=== PATIENT | female | born 1980 | race Caucasian/White ===

== ENCOUNTER → 2017-05-27 13:32 | Outpatient (CLI) | payer MEDICAID, SELFPAY ==
[2017-05-28 11:35] LABS: Chlamydia Trachomatis by PCR Negative (Negative); Neisserai gonorrhoeae by PCR Negative (Negative); Probe Check PASS; Sample Adequacy Control PASS; Specimen Processing Control PASS
[2017-05-29 03:07] LABS: HCV Quant. RNA PCR HCV Not Detected IU/mL (.)
[2017-05-29 03:15] LABS: Rapid Plasmin Reagin (RPR) NONREACTIVE (NONREACTIVE)
[2017-05-29 09:05] LABS: HEPATITIS B SURFACE AG Negative (Negative); HSV 1 IgG < 0.91 index (0.00-0.90); HSV 2 IgG < 0.91 index (0.00-0.90)
[2017-06-09 09:31] LABS: HPV APTIMA, High Risk Negative; HPV Reflexed? YES, CHARGE PATIENT
== END ==
PROVIDERS: Nurse Practitioner Women's Health; Family Provider Internal Medicine; PCP Internal Medicine; Visit Provider Obstetrics & Gynecology
DX: Z12.4 Encounter for screening for malignant neoplasm of cervix (principal); Z11.3 Encounter for screening for infections with a predominantly sexual mode of transmission
CPT/HCPCS: 36415; 86592; 86695; 86696; 87340; 87491; 87522; 87591; 87624; 88175; G0145

== ENCOUNTER 2017-11-18 11:54 | Emergency (ER) | payer MEDICAID, SELFPAY ==
[2017-11-18 11:55] VITALS: BP 142/78; PULSE 100; RESP 22; TEMP 36.6; O2SAT 98; BMI 27.6
--- NOTE | 2017-11-18 12:11 | RAD_ITS ---
STUDY: X-RAY - LEFT FOOT CLINICAL: Pain in great toe after injury. TECHNIQUE: 3 view(s) of the foot. COMPARISON: Radiograph report 12/20/2010. FINDINGS: Normal talus, calcaneus, and tarsal bones. Normal visualized subtalar, talonavicular, calcaneocuboid, tarsal and tarsometatarsal articulations. Normal metatarsi. Normal metatarsophalangeal joint of the great toe. Normal tibial and fibular sesamoid bones. Normal interphalangeal joint of the great toe. There is a nondisplaced fracture of the ungual tuft of the great toe, best evaluated on the oblique view. Normal second through fifth metatarsophalangeal joints. Normal interphalangeal joints and phalanges of the lesser toes. There is soft tissue swelling of the great toe. RAD/Foot min 3 Views IMPRESSION: Nondisplaced fracture of the ungual tuft of the great toe. Electronically Signed: Emory Patel MD at 13:05 EDT Tel , Service support ,
[2017-11-18] MEDS: oxyCODONE 5 MG Tablet PO (13:41)
--- NOTE | 2017-11-18 13:44 | ED.VISSUMM ---
- ER Visit Summary Date of Service: 11/18/17 Chief Complaint: [Injury to left great toe] History of Present Illness: The patient is a 37 F [presents the emergency department with complaint of an injury to her left foot. Patient states that she must have bumped a log that was laying against the wall and it fell and struck her on the left foot. Patient complaining of pain mostly to the toes. Patient having pain with ambulation. Patient normally has a chronic left foot drop due to a back surgery that she has had.] Physical Examination: [Left foot-patient does have some mild soft tissue swelling over the great toe with small 10% maximal subungual hematoma. Patient has tenderness palpation over the distal phalanx. She is neurovascular intact.] Test Results: [X-rays of the left foot obtained showed a fracture of the distal phalanx of the great toe.] Emergency Department Course and Treatment: [Patient had a great toe and second toe samuel taped. She was given a postop shoe and crutches. Patient was given 1 OxyIR.] Treatment Plan: [Patient has pain medication at home and that she chronically gets Percocet from pain management. Patient did ask for his something for nausea and I will write her a prescription for Zofran.] Disposition: [Discharged home in stable condition] Impression: [Fracture left great toe distal phalanx] This note was generated with [employer] dictation software. It may contain incorrect words, spelling, and punctuation that were not noted in review of the chart prior to signing ED Disposition - Plan for ED Patient: Chief Complaint: Lower Extremity Injury Referrals: Crystal Batista MD [Primary Care Provider] -
--- NOTE | 2017-11-18 13:46 | ED.DEP ---
ED Disposition - Plan for ED Patient: Chief Complaint: Lower Extremity Injury Instructions: ED Fx Toe Closed Prescriptions: Ondansetron [Zofran Odt] 4 mg PO Q8H PRN PRN #10 tab PRN Reason: Nausea Referrals: Crystal Batista MD [Primary Care Provider] - 5-7 Days
[2017-11-18] MEDS: Ondansetron ODT 4 MG Tablet PO (14:00)
[2017-11-18 14:01] VITALS: BP 139/86; PULSE 98; RESP 14; O2SAT 98
== END 2017-11-18 14:06 | disposition home or self-care (01) ==
LOC: ED 13:50
PROVIDERS: Emergency Provider Emergency Medicine; Family Provider Internal Medicine; PCP Internal Medicine
DX: S92.425A Nondisplaced fracture of distal phalanx of left great toe, initial encounter for closed fracture (principal); W22.8XXA Striking against or struck by other objects, initial encounter; Y93.9 Activity, unspecified; Y92.9 Unspecified place or not applicable; Z72.0 Tobacco use
CPT/HCPCS: 73630; 99284

== ENCOUNTER 2020-08-04 05:23 | Emergency (ER) | payer MEDICARE, MEDICAID, SELFPAY ==
[2019-05-16 10:37] VITALS: BMI 31.8
[2020-08-04 05:24] VITALS: BP 126/81; PULSE 98; RESP 16; TEMP 36; O2SAT 99; BMI 30.3
--- NOTE | 2020-08-04 05:37 | EX.ED.DYSGE1 ---
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 She states that she has been addicted to oxycodone. She is now gone 5 days on her own without any. She states that her she expected her symptoms to improve. She notes continued diarrhea restlessness headaches nausea and overall feeling poorly. She notes poor sleep. Patient states that she does not believe that she needs Suboxone. She is unsure she wants to enter the detox program. She does not believe she needs to go to [facility] or speak with a counselor. [facility] Medical History Anxiety and depression Substance abuse Home Medications gabapentin 300 mg PO BIDCM 11/18/17 [History Last Taken 11/18/17] clonidine HCl 0.1 mg PO BID PRN #10 tab 08/04/20 [Rx Last Taken Unknown] dicyclomine 20 mg PO TID PRN #20 tab 08/04/20 [Rx Last Taken Unknown] norgestimate-ethinyl estradiol [[place]-Linyah] 1 tab PO DAILY 08/04/20 [History Last Taken Unknown] ondansetron 4 mg PO Q6H PRN PRN #20 tab 08/04/20 [Rx Last Taken Unknown] topiramate [Topamax] 150 mg PO QHS 08/04/20 [History Last Taken Unknown] Allergy/AdvReac Type Severity Reaction Status Date / Time Penicillins Allergy Intermediate Rash Verified 12/29/18 11:43 acetaminophen [From Vicodin] AdvReac Intermediate Nausea Verified 12/29/18 11:43 hydrocodone bitartrate AdvReac Intermediate Nausea Verified 12/29/18 11:43 [From Vicodin] Family History Mother Hypertension Uncle Hypertension Sister Hypertension Grandfather Hypertension Prostate cancer Unknown Myocardial infarction Surgical History bilateral uterine surgery delivery delivered dissection of L-4 and L-5 H/O dilation and curettage History of cholecystectomy History of foot surgery History of lumbar fusion History of tonsillectomy Hx of appendectomy S/P tubal ligation tendon transfer Social History Smoking Status: Current every day smoker tobacco type: cigarettes alcohol intake: current details: social substance use type: does not use caffeine: Yes what type of physical activity do you participate in: walking frequency: daily seatbelt use: always do you feel safe at home: Yes additional social history: engaged ROS ROS ED Constitutional Constitutional ED: Reports chills and sweats; Denies weight loss Eyes Eyes: Denies change in vision or diplopia ENT ENT ED: Reports rhinorrhea; Denies ear pain or sore throat Cardiovascular Cardiovascular: Reports palpitations; Denies chest pain, orthopnea or racing heartbeat Respiratory/Chest Respiratory/Chest: Denies cough, dyspnea or orthopnea Gastrointestinal Gastrointestinal: Reports abdominal pain, diarrhea and nausea; Denies vomiting Genitourinary Genitourinary ED: Denies dysuria, hematuria or urinary frequency Musculoskeletal Musculoskeletal: Reports myalgias; Denies arthralgias Integumentary Denies abscess or rash Neurologic Neurologic: Reports other Details: Restless legs insomnia ; Denies headache(s) or weakness Psychiatric Psychiatric: Reports anxiety; Denies depression, suicidal ideation or suicidal thoughts Endocrine Endocrinology: Denies polydipsia, polyphagia or polyuria Allergic/Immunologic Allergic/Immunologic ED: Denies mouth swelling, tongue swelling or urticaria EXAM Physical Exam Const Vital Signs: 08/04/20 05:24 Temperature 96.8 F L Temperature Source Temporal Pulse Rate 98 Respiratory Rate 16 Blood Pressure 126/81 H Blood Pressure Mean 96 Pulse Ox 99 Oxygen Delivery Method Room Air Positive well nourished and well developed Constitutional Narrative: Patient is restless in the bed. General Appearance ED: well developed HEENT Reports normocephalic, head/scalp atraumatic and moist mucous membranes Eyes PERRL and EOMs intact bilaterally Neck no lymphadenopathy, supple and no JVD Resp normal respiratory effort and clear to auscultation bilaterally Cardio regular rate and no murmurs Rate: tachycardic GI normal to inspection, nondistended, normoactive bowel sounds and non-tender Palpation: soft Back/Spine no CVA tenderness and normal ROM Extremity normal to inspection General Extremety ED: Negative for edema General Extremity: Negative for edema Neuro oriented x3 and CN's II-XII intact bilaterally Sensorium / Orientation: alert Motor Exam: strength 5/5 throughout Psych mental status grossly normal Psych Narrative: Patient denies suicidal homicidal ideation. Mood & Affect: tearful; Negative for depressed Skin no rashes or lesions noted and no wounds MDM MDM MDM Narrative Medical decision making narrative: Patient would like to think about whether or not she wants to stay for inpatient detox. I will give her a liter of fluids Zofran Bentyl and a clonidine while we await her answer. Patient is decided she would rather go home and see if her symptoms resolve in the next couple days. If they do not she states she may return. I will write her prescriptions for Zofran Bentyl and a few clonidine. I will refer her to 180. I encouraged her that she would most likely have a better success rate at staying off the oxycodone by coming into the hospital and following up. Discharge Plan Triage Chief Complaint: Substance Abuse ED Provider: Evelio Lowery Dx/Rx/DC Orders Clinical Impression: Opiate addiction, Opiate withdrawal Instructions: ED Opioid Withdrawal Prescriptions: New ondansetron [ondansetron] 4 MG tablet 4 mg PO Q6H PRN PRN (Reason: Nausea) Qty: 20 RF: 0 dicyclomine 20 mg tablet 20 mg PO TID PRN (Reason: abdominal pain) Qty: 20 RF: 0 clonidine HCl 0.1 mg tablet 0.1 mg PO BID PRN (Reason: Restlessness) Qty: 10 RF: 0 No Action gabapentin 100 MG capsule 300 mg PO BIDCM RF: 0 norgestimate-ethinyl estradiol [[place]ray-Linyah] 0.25-35 mg-mcg Tablet 1 tab PO DAILY RF: 0 topiramate [Topamax] 100 mg Tablet 150 mg PO QHS RF: 0 Primary Care Provider: Crystal Batista Referrals: Crystal Batista MD [Primary Care Provider] - [facility] [STAFF PHYSICIAN] - As soon as possible Disposition Disposition: Home, self care
[2020-08-04] MEDS: Dicyclomine 10 MG Capsule 20 MG PO (05:43)
[2020-08-04] MEDS: cloNIDine HCl 0.1 MG Tablet PO (05:43)
[2020-08-04] MEDS: Ondansetron 4 MG/2 ML Vial IV (05:43)
[2020-08-04] MEDS: 0.9% Normal Saline 1,000 ML 1000 ML IV (05:44)
[2020-08-04 07:38] VITALS: BP 132/61; PULSE 67; RESP 16; O2SAT 99
== END 2020-08-04 07:40 | disposition home or self-care (01) ==
PROVIDERS: Emergency Provider Emergency Medicine; PCP Internal Medicine
DX: F11.23 Opioid dependence with withdrawal (principal); F17.210 Nicotine dependence, cigarettes, uncomplicated; Z79.899 Other long term (current) drug therapy
CPT/HCPCS: 96361; 96374; 99283; J7030; A4216; J2405

== ENCOUNTER 2020-08-10 08:22 | Inpatient (IN) | payer MEDICARE, MEDICAID, SELFPAY ==
[2020-08-10] VITALS (8 sets, daily range): BP systolic 110–180; BP diastolic 60–96; PULSE 66–97; RESP 16–24; TEMP 36.6–37.2; O2SAT 95–99; BMI 31.3; BMI 29.8
--- NOTE | 2020-08-10 08:40 | EDS_ITS ---
HPI History of Present Illness Chief Complaint: Substance Abuse Detail of Chief Complaint: Requesting detox from opiates Informant: patient Associated Symptoms Associated Symptoms: Positive for diarrhea* Narrative Narrative: Patient presents to the emergency department with history of opiate abuse. Patient states that she had many surgeries years ago on her back and then had a tendon transfer in her left leg which required her to be on narcotic pain medication. She has been abusing oxycodone up to 10 tablets daily. Her last dose was on July 30. She was seen in the emergency department 6 days ago and given clonidine as well as Bentyl and Zofran to try to manage the symptoms at home. Patient states that she had been doing okay for several days but noted that she was getting groggy at time so she stopped taking some of her medication. Patient then started having more symptoms of withdrawal and since yesterday has been very uncomfortable with body aches and diarrhea and feeling anxious. She denies any suicidal or homicidal ideation. Prior similar symptoms: No PFSH PFSH Medical History Anxiety and depression Substance abuse Home Medications gabapentin 300 mg PO BIDCM 11/18/17 [History Last Taken 11/18/17] clonidine HCl 0.1 mg PO BID PRN #10 tab 08/04/20 [Rx Last Taken Unknown] dicyclomine 20 mg PO TID PRN #20 tab 08/04/20 [Rx Last Taken Unknown] norgestimate-ethinyl estradiol [[place]-Linyah] 1 tab PO DAILY 08/04/20 [History Last Taken Unknown] ondansetron 4 mg PO Q6H PRN PRN #20 tab 08/04/20 [Rx Last Taken Unknown] topiramate [Topamax] 150 mg PO QHS 08/04/20 [History Last Taken Unknown] Allergy/AdvReac Type Severity Reaction Status Date / Time Penicillins Allergy Intermediate Rash Verified 08/10/20 08:26 acetaminophen [From Vicodin] AdvReac Intermediate Nausea Verified 08/10/20 08:26 hydrocodone bitartrate AdvReac Intermediate Nausea Verified 08/10/20 08:26 [From Vicodin] Family History Mother Hypertension Uncle Hypertension Sister Hypertension Grandfather Hypertension Prostate cancer Unknown Myocardial infarction Surgical History bilateral uterine surgery delivery delivered dissection of L-4 and L-5 H/O dilation and curettage History of cholecystectomy History of foot surgery History of lumbar fusion History of tonsillectomy Hx of appendectomy S/P tubal ligation tendon transfer Social History Smoking Status: Former smoker alcohol intake: current details: social substance use type: does not use caffeine: Yes what type of physical activity do you participate in: walking frequency: daily seatbelt use: always do you feel safe at home: Yes additional social history: engaged ROS ROS ED Constitutional Constitutional ED: Reports systems reviewed and no addt'l complaints, except as documented; Denies body ache(s), change in weight or chills Eyes Eyes: Denies acute decrease in peripheral vision, change in vision, double vision or loss of vision ENT ENT ED: Reports none; Denies ear pain, lip swelling, loss taste/smell, neck pain, otalgia or sore throat Cardiovascular Cardiovascular: Reports none; Denies abdominal pain, chest pain with activity, leg edema, lightheadedness, palpitations, rapid heart rate or syncope Respiratory/Chest Respiratory/Chest: Reports none; Denies change in mental status, dry cough, dyspnea, hemoptysis, shortness of breath at rest or shortness of breath with exertion Gastrointestinal Gastrointestinal: Reports none, diarrhea and nausea; Denies abdominal pain, change in stool character, hematemesis, hematochezia, melena, rectal bleeding or vomiting Genitourinary Genitourinary ED: Reports none; Denies abdominal discomfort, anuria, dysuria, genital pain or polyuria Musculoskeletal Musculoskeletal: Reports none and myalgias; Denies arthralgias, back pain, difficulty walking, extremity pain or muscle weakness Integumentary Reports none; Denies abscess or rash Neurologic Neurologic: Reports none; Denies abnormal gait, confusion, focal weakness, frequent falls, headache(s), loss of vision, numbness, paresthesias, radicular pain, vertigo or weakness Psychiatric Psychiatric: Reports systems reviewed and no addt'l complaints, except as documented and none; Denies behavioral changes, confusion, difficulty concentrating, hallucinations, suicidal ideation, suicidal thoughts, tactile hallucinations or visual hallucinations Endocrine Endocrinology: Denies none, cold intolerance, excessive sweating, fatigue or heat intolerance Hematologic/Lymphatic Hematologic/Lymphatic: Reports none; Denies anemia, easy bleeding or easy bruising Allergic/Immunologic Allergic/Immunologic ED: Denies as per HPI, none, lip swelling, mouth swelling, throat swelling, tongue swelling or hives EXAM Physical Exam Const Vital Signs: 08/10/20 08:23 08/10/20 08:37 08/10/20 10:23 Temperature 97.9 F Temperature Source Temporal Pulse Rate 97 85 Respiratory Rate 24 H 18 20 H Blood Pressure 180/96 H 122/84 H Blood Pressure Mean 124 96 Pulse Ox 98 97 Oxygen Delivery Method Room Air Room Air 08/10/20 10:52 Temperature Temperature Source Pulse Rate 71 Respiratory Rate 16 Blood Pressure 127/80 H Blood Pressure Mean 95 Pulse Ox 99 Oxygen Delivery Method Room Air Positive well nourished and well developed General Appearance ED: well developed and NAD HEENT Reports TM's clear and moist mucous membranes normocephalic and atraumatic; Negative for trauma or tenderness Tympanic Membrane ED: Yes TM's clear Eyes PERRL and EOMs intact bilaterally General Eye ED: Negative for pale conjunctiva or scleral icterus Neck no lymphadenopathy, supple and no JVD General: Negative for tenderness Chest Wall inspection of chest normal and palpation of chest normal Chest: Negative for tenderness Resp normal respiratory effort and clear to auscultation bilaterally Effort and Inspection: Negative for respiratory distress or pain with movement Auscultation: Negative for rhonchi, wheezes or diminished lung sounds Cardio regular rate, regular rhythm, S1 normal heart sound, S2 normal heart sound and no murmurs Peripheral Pulses: pulses 2+ throughout GI normal to inspection, nondistended, normoactive bowel sounds, soft to palpation, non-tender, non-distended and no masses Back/Spine no CVA tenderness and no thoracic nor lumbar tenderness Extremity normal to inspection General Extremety ED: Negative for edema General Extremity: Negative for edema Neuro oriented x3, CN's II-XII intact bilaterally, no sensory deficits noted and gait normal Sensorium / Orientation: awake, alert, oriented to person, oriented to place and oriented to time Motor Exam: strength 5/5 throughout and strength abnormal Psych mental status grossly normal Skin no rashes or lesions noted and no wounds MDM MDM MDM Narrative Medical decision making narrative: Patient given some Ativan for anxiety. Patient given Zofran for symptom relief. Case discussed with hospitalist will evaluate patient for admission. Lab Data Attestation: I reviewed the patient's lab results. Labs: Laboratory Results - last 24 hr 08/10/20 08/10/20 08/10/20 09:00 09:00 09:00 Sodium 140 Potassium 3.9 Chloride 113 H Carbon Dioxide 21.0 Anion Gap 6 BUN 11 Creatinine 1.08 H Estim Creat Clear Calc 68.68 Est GFR (MDRD) Af Amer 73 Est GFR (MDRD) Non-Af 60 BUN/Creatinine Ratio 10.2 Glucose 95 Calcium 8.8 Total Bilirubin 0.20 AST 8 L ALT 54 Alkaline Phosphatase 51 Total Protein 7.5 Albumin 3.9 Globulin 3.6 Albumin/Globulin Ratio 1.1 Serum , Qual NEGATIVE Urine Opiates Screen Urine Methadone Screen Ur Barbiturates Screen Ur Phencyclidine Scrn Ur Amphetamines Screen U Methamphetamin-MDMA U Benzodiazepines Scrn Urine Cocaine Screen U Cannabinoids Screen Ur Drug Screen Comment Ethyl Alcohol < 3.0 08/10/20 09:00 Sodium Potassium Chloride Carbon Dioxide Anion Gap BUN Creatinine Estim Creat Clear Calc Est GFR (MDRD) Af Amer Est GFR (MDRD) Non-Af BUN/Creatinine Ratio Glucose Calcium Total Bilirubin AST ALT Alkaline Phosphatase Total Protein Albumin Globulin Albumin/Globulin Ratio Serum , Qual Urine Opiates Screen NEGATIVE Urine Methadone Screen NEGATIVE Ur Barbiturates Screen NEGATIVE Ur Phencyclidine Scrn NEGATIVE Ur Amphetamines Screen NEGATIVE U Methamphetamin-MDMA NEGATIVE U Benzodiazepines Scrn NEGATIVE Urine Cocaine Screen NEGATIVE U Cannabinoids Screen NEGATIVE Ur Drug Screen Comment Ethyl Alcohol Discharge Plan Triage Chief Complaint: Substance Abuse ED Provider: Mei Panda Dx/Rx/DC Orders Clinical Impression: Opiate withdrawal, Opiate addiction Prescriptions: No Action gabapentin 100 MG capsule 300 mg PO BIDCM RF: 0 norgestimate-ethinyl estradiol [[place]-Linyah] 0.25-35 mg-mcg Tablet 1 tab PO DAILY RF: 0 topiramate [Topamax] 100 mg Tablet 150 mg PO QHS RF: 0 ondansetron [ondansetron] 4 MG tablet 4 mg PO Q6H PRN PRN (Reason: Nausea) Qty: 20 RF: 0 dicyclomine 20 mg tablet 20 mg PO TID PRN (Reason: abdominal pain) Qty: 20 RF: 0 clonidine HCl 0.1 mg tablet 0.1 mg PO BID PRN (Reason: Restlessness) Qty: 10 RF: 0 Primary Care Provider: Crystal Batista Referrals: Crystal Batista MD [Primary Care Provider] - Disposition Disposition: Acute Care [facility]
[2020-08-10] MEDS: LORazepam 2 MG/ML Syringe 0.5 MG IV ×2 (08:57→10:54)
[2020-08-10] MEDS: Ondansetron ODT 4 MG Tablet PO (09:08)
[2020-08-10 09:30] LABS: Amphetamine Urine VISTA NEGATIVE (<1000 ng/mL); Barbiturate Urine VISTA NEGATIVE (< 200 ng/mL); Benzodiazepine Urine VISTA NEGATIVE (< 200 ng/mL); Cocaine Urine VISTA NEGATIVE (< 300 ng/mL); Ecstacy Urine VISTA NEGATIVE (< 500 ng/mL); Methadone Urine VISTA NEGATIVE (< 300 ng/mL); PCP Urine VISTA NEGATIVE (< 25 ng/mL); THC Urine VISTA NEGATIVE (< 50 ng/mL); Vista UDS pH Range 5
[2020-08-10 09:31] LABS: ALB/GLOB Ratio 1.1 RATIO (0.9-2.4); AST(SGOT) 8 U/L (15-37); Alanine Aminotransfer ALT/SGPT 54 U/L (13-56); Albumin, Serum 3.9 g/dL (3.2-5.0); Alkaline Phosphatase 51 U/L (45-117); Anion Gap 6 (5-15); BUN 11 mg/dL (7-18); BUN/Creat Ratio 10.2 RATIO (10-20); Calcium,Total 8.8 mg/dL (8.5-10.1); Chloride 113 mmol/L (98-107); Creatinine, Serum 1.08 mg/dL (0.55-1.02); EST Glomerular Filtration Rate 60 mL/min (>60); Est Glom Filt Rate - Afr Amer 73 mL/min (>60); Estimated Creatinine Clearance 68.68 ml/min; Globulin 3.6 g/dL (2.2-4.2); Glucose 95 mg/dL (74-106); Potassium 3.9 mmol/L (3.5-5.1); Protein, Total 7.5 g/dL (6.4-8.2); Sodium Level 140 mmol/L (136-145)
[2020-08-10 09:48] LABS: Internal QC Validated? YES +Cl - CLEAR BKGD; Pregnancy, Serum, hCG Quali. NEGATIVE Negative
[2020-08-10 09:53] LABS: Alcohol, Blood (Medical)-Serum < 3.0 mg/dL
--- NOTE | 2020-08-10 10:55 | PCM.HP.STD ---
HPI - General General Date of Admission: 08/10/20 HPI Narrative KRISTIN AQUINO, is a 40 F who presents requesting medical stabilisation from opioid withdrawal. Patient states she is addicted to opioid medications after a history of back surgery. She takes oxycodone. She had tried to detox herself from opioids. She was in the emergency room almost a week ago, and given some medications -clonidine, Zofran, Bentyl. She said at home she felt improved with these medications. She however was very dizzy with standing and exertion. She started to stop the Bentyl and the clonidine. Over the last few days she is with a relapse of all her symptoms. She complains of feeling hot and cold. She is very restless, has leg cramps, is very nauseous, has vomited once today. She also has diarrhea anytime she eats. She denied any upper respiratory illness. [facility] Medical History Anxiety and depression Smoker Substance abuse Home Medications gabapentin 300 mg PO BIDCM 11/18/17 [History Last Taken 08/10/20] clonidine HCl 0.1 mg PO BID PRN #10 tab 08/04/20 [Rx Last Taken 08/10/20] dicyclomine 20 mg PO TID PRN #20 tab 08/04/20 [Rx Last Taken 08/10/20] norgestimate-ethinyl estradiol [[place]-Linyah] 1 tab PO QHS 08/04/20 [History Last Taken 08/10/20] ondansetron 4 mg PO Q6H PRN PRN #20 tab 08/04/20 [Rx Last Taken Unknown] topiramate [Topamax] 150 mg PO QHS 08/04/20 [History Last Taken Unknown] Allergy/AdvReac Type Severity Reaction Status Date / Time Penicillins Allergy Intermediate Rash Verified 08/10/20 08:26 acetaminophen [From Vicodin] AdvReac Intermediate Nausea Verified 08/10/20 08:26 hydrocodone bitartrate AdvReac Intermediate Nausea Verified 08/10/20 08:26 [From Vicodin] Family History Mother Hypertension Uncle Hypertension Sister Hypertension Grandfather Hypertension Prostate cancer Unknown Myocardial infarction Surgical History bilateral uterine surgery delivery delivered dissection of L-4 and L-5 H/O dilation and curettage History of cholecystectomy History of foot surgery History of lumbar fusion History of tonsillectomy Hx of appendectomy S/P tubal ligation tendon transfer Social History Smoking Status: Current some day smoker tobacco type: cigarettes and e-cigarettes alcohol intake: current details: social substance use type: does not use caffeine: Yes what type of physical activity do you participate in: walking frequency: daily seatbelt use: always do you feel safe at home: Yes additional social history: engaged ROS ROS Narrative Constitutional: Reports: Malaise, Weakness, Fatigue. Denies: Anorexia, Chills, Fever, Night Sweats, Weight Change Eyes: Denies: Blurred vision, Cataracts, Conjunctivae Inflammation, Pain, Redness, Vision Change HEENT: Denies: Difficulty Hearing, Difficulty Swallowing, Head Aches, Hearing Changes, Sinus Congestion, Sinus Drainage Cardiovascular: Denies: Chest Pain, Orthopnea, Palpitations Respiratory: Denies: Cough, Shortness of breath at rest, Sputum production Gastrointestinal: Admits to nausea and vomiting as well as abdominal cramps Genitourinary: Denies: Dysuria Musculoskeletal: Denies: Joint Pain, Joint stiffness, Joint swelling, Joint Tenderness Skin: Denies: Rash, Wounds Neurological: Denies: Numbness, Tingling, Focal weakness Vital Signs Vital Signs Vital Signs: 08/10/20 08:23 08/10/20 08:37 08/10/20 10:23 Temperature 97.9 F Temperature Source Temporal Pulse Rate 97 85 Respiratory Rate 24 H 18 20 H Blood Pressure 180/96 H 122/84 H Blood Pressure Mean 124 96 Pulse Ox 98 97 Oxygen Delivery Method Room Air Room Air 08/10/20 10:52 Temperature Temperature Source Pulse Rate 71 Respiratory Rate 16 Blood Pressure 127/80 H Blood Pressure Mean 95 Pulse Ox 99 Oxygen Delivery Method Room Air Weight Weight: 90.718 kg Body Mass Index (BMI) 31.3 Physical Exam Narrative Physical exam: General: Alert, Oriented x3, Cooperative, appears anxious, in mild distress, Well developed HEENT: Atraumatic Oral: Moist Mucosa Neck: Supple Lungs: Clear to auscultation Cardiovascular: HS I+II, regular, no murmurs Abdomen: Bowel Sounds Present, Soft, Non Tender Extremities: No edema Results Lab / Micro Data Result Diagrams: 08/10/20 09:00 08/10/20 09:00 Labs: Laboratory Results - last 24 hr 08/10/20 08/10/20 08/10/20 09:00 09:00 09:00 Sodium 140 Potassium 3.9 Chloride 113 H Carbon Dioxide 21.0 Anion Gap 6 BUN 11 Creatinine 1.08 H Estim Creat Clear Calc 68.68 Est GFR (MDRD) Af Amer 73 Est GFR (MDRD) Non-Af 60 BUN/Creatinine Ratio 10.2 Glucose 95 Calcium 8.8 Total Bilirubin 0.20 AST 8 L ALT 54 Alkaline Phosphatase 51 Total Protein 7.5 Albumin 3.9 Globulin 3.6 Albumin/Globulin Ratio 1.1 Serum , Qual NEGATIVE Urine Opiates Screen Urine Methadone Screen Ur Barbiturates Screen Ur Phencyclidine Scrn Ur Amphetamines Screen U Methamphetamin-MDMA U Benzodiazepines Scrn Urine Cocaine Screen U Cannabinoids Screen Ur Drug Screen Comment Ethyl Alcohol < 3.0 08/10/20 09:00 Sodium Potassium Chloride Carbon Dioxide Anion Gap BUN Creatinine Estim Creat Clear Calc Est GFR (MDRD) Af Amer Est GFR (MDRD) Non-Af BUN/Creatinine Ratio Glucose Calcium Total Bilirubin AST ALT Alkaline Phosphatase Total Protein Albumin Globulin Albumin/Globulin Ratio Serum , Qual Urine Opiates Screen NEGATIVE Urine Methadone Screen NEGATIVE Ur Barbiturates Screen NEGATIVE Ur Phencyclidine Scrn NEGATIVE Ur Amphetamines Screen NEGATIVE U Methamphetamin-MDMA NEGATIVE U Benzodiazepines Scrn NEGATIVE Urine Cocaine Screen NEGATIVE U Cannabinoids Screen NEGATIVE Ur Drug Screen Comment Ethyl Alcohol Assessment & Plan Assessment/Plan (1) Opiate withdrawal: PLAN: 1. Acute opioid withdrawal, in an opioid dependent patient Admit to [facility], start on Subutex withdrawal protocol 2. Rest of chronic medical problems - anxiety/depression, foot drop-stable Charges/Coding Visit Charges Inpatient E&M: 52099 Subs Hosp L2
--- NOTE | 2020-08-10 11:14 | CM.ED ---
SOCIAL WORK Referral Source: Self-referral Reason for Consult: Substance Abuse Patient presents due to withdrawal from opiates. Patient requesting detox. Patient tearful. Emotional support and encouragement provided. Patient has completed RAMP agreement with nursing and denies any questions or concerns at this time. Call to [facility] Treatment Navigator, message left. Plan: Admit to SHAHNAZ Acosta, ELECTRICAL ELECTRONICS TECHNICIAN, BROOD HATCHERY MANAGER
[2020-08-10] MEDS: Dicyclomine 10 MG Capsule 20 MG PO (12:42)
[2020-08-10] MEDS: Gabapentin 300 MG Capsule PO ×2 (12:42→21:56)
[2020-08-10] MEDS: Methocarbamol 750 MG Tablet 1500 MG PO (12:42)
[2020-08-10] MEDS: Buprenorphine HCl 2 MG TAB.SUBL SL ×2 (14:13→21:56)
--- NOTE | 2020-08-10 17:55 | NURSING ---
pt requesting a call to her mother Paloma Hancock [phone] to regional operations manager her an update on how she is doing - mom called and updated pt also requesting a call to her employer Verón[employer] [phone] to let her know that she was in the hospital and would return to work on ThursdayAugust 13 - call placed and a voicmail was left stating she was here and that she would return to work - no other information was given on VM to why pt was admitted to hospital.
[2020-08-10] MEDS: Acetaminophen 500 MG Tablet PO (19:35)
[2020-08-10] MEDS: Topiramate 50 MG Tablet 150 MG PO (21:42)
[2020-08-10] MEDS: traZODone 100 MG Tablet PO (21:56)
[2020-08-11] MEDS: Methocarbamol 750 MG Tablet 1500 MG PO ×3 (00:13→17:14)
[2020-08-11 02:57] VITALS: BP 105/61; PULSE 75; RESP 16; TEMP 36.4; O2SAT 97
[2020-08-11] MEDS: hydrOXYzine PAM 25 MG Capsule 50 MG PO ×2 (03:04→11:45)
[2020-08-11] MEDS: NORGESTIMATE-ETHINYL ESTRADIOL 1 EACH TABLET PO ×2 (04:01→21:32)
[2020-08-11] MEDS: Buprenorphine HCl 2 MG TAB.SUBL SL ×3 (05:46→21:31)
[2020-08-11] MEDS: Dicyclomine 10 MG Capsule 20 MG PO ×2 (05:48→11:45)
[2020-08-11 09:42] VITALS: BP 119/58; PULSE 78; RESP 18; TEMP 36.6; O2SAT 96
[2020-08-11] MEDS: Ibuprofen 600 MG Tablet PO (09:51)
[2020-08-11] MEDS: Ondansetron 8 MG Tablet PO ×2 (09:51→21:31)
[2020-08-11] MEDS: cloNIDine HCl 0.1 MG Tablet PO (09:51)
[2020-08-11] MEDS: Gabapentin 300 MG Capsule PO (09:52)
--- NOTE | 2020-08-11 09:57 | PCM.PN.HOSP ---
Subjective Subjective Patient was seen and examined. She complains of generalized aches, inability to sleep, cramps in her legs. No other acute events overnight. Objective Data Objective Data Vital Signs: Vital Signs Temp Pulse Resp BP Pulse Ox 97.8 F 78 18 119/58 L 96 08/11/20 09:42 08/11/20 09:42 08/11/20 09:42 08/11/20 09:42 08/11/20 09:42 Oxygen Delivery Method Room Air Weight: 86.5 kg Body Mass Index (BMI) 29.8 Intake & Output: Intake and Output for Last 24 Hours 08/09/20 08/10/20 08/11/20 23:59 23:59 23:59 Intake Total 200 / 500 550 / 550 Balance 200 / 500 550 / 550 Lab / Micro Data Result Diagrams: 08/10/20 09:00 08/10/20 09:00 Physical Exam Narrative Physical exam: General: Alert, Oriented x3, Cooperative, appears anxious, in mild distress, Well developed HEENT: Atraumatic Oral: Moist Mucosa Neck: Supple Lungs: Clear to auscultation Cardiovascular: HS I+II, regular, no murmurs Abdomen: Bowel Sounds Present, Soft, Non Tender Extremities: No edema Assessment & Plan Assessment/Plan (1) Opiate withdrawal: PLAN: 1. Acute opioid withdrawal, last Cina score was 9 Continue on Subutex withdrawal protocol Will follow up on recommendations from 180 2. Rest of chronic medical problems - anxiety/depression, foot drop-stable Charges/Coding Visit Charges Inpatient E&M: 98307 Subs Hosp L2
[2020-08-11] MEDS: Acetaminophen 500 MG Tablet PO ×2 (11:45→17:14)
[2020-08-11 14:15] VITALS: BP 115/58; PULSE 81; RESP 18; TEMP 36.6; O2SAT 98
[2020-08-11] MEDS: Mag Hydrox/Al Hydrox/Simeth 30 ML UDC PO (17:14)
--- NOTE | 2020-08-11 17:52 | CASEMGMT ---
Addendum entered by Karina Howell 08/11/20 18:25: Of note: CLAUDIA offered patient numbers for [facility] and [facility] as suboxone providers but patient did not voice interest in those numbers. Karina DOWNS Original Note: CLAUDIA Note Referral Source: GREG Camejo Reason: Patient has questions about program after discharge. CLAUDIA called pt's RN and spoke to Nell. She indicated she was in patient's room. She gave phone to patient. Patient said that she doesn't want to be on Meds but is scared to go home without meds. She asked if Dr. Pimentel could be called at home. SW stated Dr. Pimentel could not be called at home. CLAUDIA called Cabrera at [facility]. She said that patient will need evidence of sobriety prior to Dr. iPmentel prescribing Meds and patient can go to [facility] or [facility] for Suboxone if she wants it after discharge. Cabrera said that patient will need to update the provider, at her intake appointment on Thursday, about what she wants in regards to Meds. SW updated patient and patient said she didn't know what to do and explained her history. Patient was advised that she will need to decide what is best for her at discharge. Patient said that she doesn't want to go through withdrawal again as she has been in withdrawal for 11 days. CLAUDIA called Cabrera at [facility]. Cabrera said that patient stated to her that she is friend with the [facility] direct marketing executive. Cabrera said that the process of withdrawal involves medication to assist with detox. CLAUDIA and GREG Camejo met with patient. Patient was explained that medication assists with detox and is in effect a bridge to recovery so individuals do not get upset with withdrawal and use again. Patient verbalized understanding.SW asked if patient had any additional questions and she said no. No concerns voiced. Plan: [facility] assessment on Thursday Karina DOWNS
[2020-08-11 20:05] VITALS: BP 123/65; PULSE 79; RESP 18; TEMP 37.2; O2SAT 95
[2020-08-11] MEDS: Topiramate 50 MG Tablet 150 MG PO (21:29)
[2020-08-11] MEDS: traZODone 100 MG Tablet PO (21:29)
[2020-08-12 02:30] VITALS: BP 97/46; PULSE 72; RESP 16; TEMP 36.6; O2SAT 96
[2020-08-12] MEDS: Buprenorphine HCl 2 MG TAB.SUBL SL (05:43)
[2020-08-12 06:10] LABS: AST(SGOT) 6 U/L (15-37); Alanine Aminotransfer ALT/SGPT 32 U/L (13-56); Alkaline Phosphatase 41 U/L (45-117); Anion Gap 6 (5-15); BUN 18 mg/dL (7-18); BUN/Creat Ratio 19.4 RATIO (10-20); Calcium,Total 8.1 mg/dL (8.5-10.1); Chloride 107 mmol/L (98-107); Creatinine, Serum 0.93 mg/dL (0.55-1.02); EST Glomerular Filtration Rate 72 mL/min (>60); Est Glom Filt Rate - Afr Amer 87 mL/min (>60); Estimated Creatinine Clearance 79.76 ml/min; Glucose 100 mg/dL (74-106); Potassium 4.1 mmol/L (3.5-5.1); Sodium Level 139 mmol/L (136-145)
[2020-08-12 08:30] VITALS: BP 93/48; PULSE 69; RESP 20; TEMP 36.6; O2SAT 92
--- NOTE | 2020-08-12 08:45 | PCM.PN.HOSP ---
Subjective Subjective Patient was seen and examined. She is very anxious about her discharge plan. She is afraid she will withdrawal from Subutex at discharge. Discussed with 180 to coordinate discharge plan with them at 9:30 in the morning better. Objective Data Objective Data Vital Signs: Vital Signs Temp Pulse Resp BP Pulse Ox 98 F 72 16 97/46 L 96 08/12/20 02:30 08/12/20 02:30 08/12/20 02:30 08/12/20 02:30 08/12/20 02:30 Oxygen Delivery Method Room Air Weight: 86.5 kg Body Mass Index (BMI) 29.8 Intake & Output: Intake and Output for Last 24 Hours 08/10/20 08/11/20 08/12/20 23:59 23:59 23:59 Intake Total 200 / 500 550 / 550 Balance 200 / 500 550 / 550 Lab / Micro Data Result Diagrams: 08/12/20 05:21 08/12/20 05:21 Labs: Laboratory Results - last 24 hr 08/12/20 05:21 Sodium 139 Potassium 4.1 Chloride 107 Carbon Dioxide 26.0 Anion Gap 6 BUN 18 Creatinine 0.93 Estim Creat Clear Calc 79.76 Est GFR (MDRD) Af Amer 87 Est GFR (MDRD) Non-Af 72 BUN/Creatinine Ratio 19.4 Glucose 100 Calcium 8.1 L Total Bilirubin 0.20 AST 6 L ALT 32 Alkaline Phosphatase 41 L Total Protein 6.0 L Albumin 3.0 L Globulin 3.0 Albumin/Globulin Ratio 1.0 Physical Exam Narrative Physical exam: General: Alert, Oriented x3, Cooperative, appears anxious, well developed HEENT: Atraumatic Oral: Moist Mucosa Neck: Supple Lungs: Clear to auscultation Cardiovascular: HS I+II, regular, no murmurs Abdomen: Bowel Sounds Present, Soft, Non Tender Extremities: No edema Assessment & Plan Assessment/Plan (1) Opiate withdrawal: PLAN: Summary: 40-year-old female who comes in requesting for medical stabilization from chronic pain medication use. Patient will be discharged to 180 L in the morning to make it for her 930 appointment with 180. 1. Acute opioid withdrawal, improving Last Cina score was 6 Continue on Subutex withdrawal protocol Will follow up on recommendations from 180 2. Rest of chronic medical problems - anxiety/depression, foot drop-stable Charges/Coding Visit Charges Inpatient E&M: 40312 Subs Hosp L2
[2020-08-12] MEDS: Ibuprofen 600 MG Tablet PO (09:43)
[2020-08-12 09:45] VITALS: PULSE 69; RESP 20; O2SAT 92
[2020-08-12 14:30] VITALS: BP 121/71; PULSE 78; RESP 20; TEMP 36.6; O2SAT 98
[2020-08-12] MEDS: Acetaminophen 500 MG Tablet PO (15:07)
[2020-08-12 20:01] VITALS: BP 129/79; PULSE 71; RESP 16; TEMP 37.1; O2SAT 97
[2020-08-12] MEDS: Gabapentin 300 MG Capsule PO (20:06)
[2020-08-12] MEDS: hydrOXYzine PAM 25 MG Capsule 50 MG PO (20:06)
[2020-08-12] MEDS: Methocarbamol 750 MG Tablet 1500 MG PO (20:06)
[2020-08-12] MEDS: Dicyclomine 10 MG Capsule 20 MG PO (20:07)
[2020-08-12] MEDS: Ondansetron 8 MG Tablet PO (20:07)
[2020-08-12] MEDS: Topiramate 50 MG Tablet 150 MG PO (20:07)
[2020-08-12] MEDS: NORGESTIMATE-ETHINYL ESTRADIOL 1 EACH TABLET PO (20:10)
--- NOTE | 2020-08-12 20:32 | NURSING ---
Pt requesting meds to help with withdrawal at [place]. I let Pt know I would tell morning nurse and she would have to talk with the morning Dr. She stated I don't want Subxone, just something to help with the withdrawal symptoms.. I let her know that they usually don't prescribe meds after detox, but that would be a conversation she would have to have one on one with the Dr. Pt was very tearful and anxious. PRN meds were given, and Pt was calmed down.
[2020-08-13] VITALS: TEMP 36.8
[2020-08-13 05:05] VITALS: BP 134/72; PULSE 82; RESP 16; TEMP 36.9; O2SAT 100
[2020-08-13] MEDS: Gabapentin 300 MG Capsule PO (05:11)
[2020-08-13] MEDS: Methocarbamol 750 MG Tablet 1500 MG PO (05:11)
--- NOTE | 2020-08-13 08:20 | PCM.DC.SUM ---
Providers Date of Admission: 08/10/20 Primary Care Physician: Dr. Crystal Batista MD Reason For Visit: ACUTE OPIOID WITHDRAWAL Diagnosis Discharge Diagnosis (1) Opiate withdrawal: Status: Acute Code(s): F11.23 - Opioid dependence with withdrawal Medications at Discharge Home Medications gabapentin 300 mg PO BIDCM 11/18/17 clonidine HCl 0.1 mg PO BID PRN #10 tab 08/04/20 dicyclomine 20 mg PO TID PRN #20 tab 08/04/20 norgestimate-ethinyl estradiol [[place]-Linyah] 1 tab PO QHS 08/04/20 ondansetron 4 mg PO Q6H PRN PRN #20 tab 08/04/20 topiramate [Topamax] 150 mg PO QHS 08/04/20 Hospital Course Summary of Care Provided Minutes Spent on Discharge: 35 Hospital Course: Patient is a 40-year-old lady with past medical history significant for depression with anxiety, chronic opioid dependence presented with acute opiate withdrawal Acute opiate withdrawal patient was admitted to regular nursing floor for medical stabilization using Subutex as well as medications for her accompanying symptoms. Patient did tolerate the program discharge 3 days after her admission Depression with anxiety Did continue with home meds Foot drop ?Stable Tobacco dependence - Counseled on cessation, offered nicotine patch for tobacco cravings Physical Exam Narrative GENERAL: cooperative HEENT: Atraumatic; EYES; Anicteric, Normal Conjunctiva NECK; supple, normal thyroid, RESPIRATORY: Diminished to auscultation CARDIOVASCULAR: Regular S1 S2, GI: soft, normoactive bowel sounds, : No Renal angle tenderness; EXTREMITIES: No edema, no clubbing, MUSCULOSKELETAL: no muscle waisting NEURO: Awake; no lateralizing signs. SKIN: No Rash PSYCH; Flat affect Weight / BMI Weight Weight: 86.5 kg Body Mass Index (BMI) 29.8 ABG / Lab / Microbiology Data Result Diagrams: 08/12/20 05:21 08/12/20 05:21 D/C Instructions Discharge Diet: No restrictions Discharge Activity: Return to Normal Activity Call your doctor if you observe: Fever of 101 or Higher, Shortness of breath, Fainting spells and Chest pain Meaningful Use Info Meaningful Use Diagnoses (Choose all that apply): None applicable Discharge Plan Admission Admit Date/Time: 08/10/20 10:51 Primary Reason for Your Visit: ACUTE OPIOID WITHDRAWAL Attending Provider: Yoshi Lance Primary Care Provider: Crystal Batista Instructions Forms: Work / School Excuse Discharge Orders/Prescriptions Prescriptions: Continued gabapentin 100 MG capsule 300 mg PO BIDCM RF: 0 norgestimate-ethinyl estradiol [[place]-Linyah] 0.25-35 mg-mcg Tablet 1 tab PO QHS RF: 0 topiramate [Topamax] 100 mg Tablet 150 mg PO QHS RF: 0 ondansetron 4 MG tablet 4 mg PO Q6H PRN PRN (Reason: Nausea) Qty: 20 RF: 0 dicyclomine 20 mg tablet 20 mg PO TID PRN (Reason: abdominal pain) Qty: 20 RF: 0 clonidine HCl 0.1 mg tablet 0.1 mg PO BID PRN (Reason: Restlessness) Qty: 10 RF: 0 Referrals / Follow Up: Crystal Batista MD [Primary Care Provider] - Within 2 Weeks Disposition Disposition (needs filled in before D/C Order can be placed): Home, self care Charges/Coding Visit Charges Inpatient E&M: 18797 Disch Hosp
[2020-08-13 08:38] VITALS: BP 121/55; PULSE 93; RESP 16; TEMP 36.5; O2SAT 96
== END 2020-08-13 08:40 | disposition home or self-care (01) | DRG 897 ==
LOC: ED 10:55 → MS3 11:06
PROVIDERS: Admitting Provider Internal Medicine; Emergency Provider Emergency Medicine; PCP Internal Medicine; Visit Provider Internal Medicine
DX: F11.23 Opioid dependence with withdrawal (principal); M21.379 Foot drop, unspecified foot; F32.9 Major depressive disorder, single episode, unspecified; F41.9 Anxiety disorder, unspecified; Z79.899 Other long term (current) drug therapy; F17.210 Nicotine dependence, cigarettes, uncomplicated; F17.290 Nicotine dependence, other tobacco product, uncomplicated
CPT/HCPCS: 36415; 80053; 80307; 82077; 84703; 99284; A4216

== ENCOUNTER 2020-11-27 13:59 | Emergency (ER) | payer MEDICARE, MEDICAID, SELFPAY ==
[2020-11-27 14:00] VITALS: BP 136/79; PULSE 87; RESP 16; TEMP 36.6; O2SAT 98; BMI 27.3
--- NOTE | 2020-11-27 14:27 | EKG12_ITS ---
Test Reason : CP Blood Pressure : / mmHG Vent. Rate : 088 BPM Atrial Rate : 088 BPM P-R Int : 160 ms QRS Dur : 076 ms QT Int : 352 ms P-R-T Axes : 056 069 060 degrees QTc Int : 425 ms Normal sinus rhythm Normal ECG Confirmed by TL PARHAM, LEDA ([id number]), editor department IRMA NEWMAN ([id number]) on 11/29/2020 12:33:36 PM Referred By: PRIMO/KORY Confirmed By:LEDA BOOTHE MD
[2020-11-27 14:37] LABS: Absolute Lymphocyte Count 3.42 X10^3/uL (0.83-4.51); Absolute Neutrophil Count 3.8 X10^3/uL (2.0-7.7); Basophil# 0.03 X10^3/uL; Basophil% 0.4 % (0-1); Eosinophil# 0.05 X10^3/uL; Eosinophils% 0.6 % (0-5); Hematocrit 36.9 % (37-47); Hemoglobin 12.5 g/dL (12.0-15.0); Lymphocyte # 3.42 X10^3/ul (0.83-4.51); Lymphocyte % 44.1 % (19-41); Mean Corp Hgb Conc 33.9 g/dL (32-36); Mean Corpuscular Hgb 32.3 pg (27.0-32.0); Mean Corpuscular Volume 95.3 fL (81-99); Mean Platelet Vol. 8.8 fl (6.2-12.0); Monocyte# 0.39 X10^3/uL; NRBC Flagged by Analyzer 0 % (0-5); Neutrophil # 3.84 X10^3/uL (2.7-7.7); Neutrophil % 49.6 % (47-70); Platelet Count 295 K/mm3 (150-450); RBC Distribution Width CV 12.1 % (11.6-14.6); RBC Distribution Width SD 42.1 fl (35.1-43.9); Red Blood Count 3.87 M/mm3 (4.2-5.4); White Blood Count 7.8 K/mm3 (4.4-11.0)
[2020-11-27 14:48] LABS: Anion Gap 10 (5-15); BUN 15 mg/dL (7-18); BUN/Creat Ratio 17.5 RATIO (10-20); Calcium,Total 8.4 mg/dL (8.5-10.1); Chloride 106 mmol/L (98-107); Creatinine, Serum 0.86 mg/dL (0.55-1.02); EST Glomerular Filtration Rate 79 mL/min (>60); Est Glom Filt Rate - Afr Amer 95 mL/min (>60); Estimated Creatinine Clearance 86.25 ml/min; Glucose 94 mg/dL (74-106); Potassium 3.8 mmol/L (3.5-5.1); Sodium Level 141 mmol/L (136-145); Troponin-I HS 4 pg/mL (3.0-54.0)
--- NOTE | 2020-11-27 15:14 | RAD_ITS ---
STUDY: X-RAY CHEST REASON FOR EXAM: Female, 40 years old. Chest pain TECHNIQUE: Single AP portable view of the chest. COMPARISON: Comparison is made with prior study dated 10/05/2015. FINDINGS: The lungs are clear and expanded. There is no demonstrated pleural abnormality. Normal size heart. Normal mediastinum and gavino. Normal visualized pulmonary arteries. Normal visualized aortic arch and descending thoracic aorta. Normal visualized thoracic spine. Normal visualized ribs, clavicles, and shoulders. There is no demonstrated abnormality of the visualized soft tissue structures of the upper abdomen. RAD/Chest 1 View (Portable) IMPRESSION: Normal x-ray examination of the chest. Electronically Signed: Chico Cota MD at 15:31 EDT , Service support ,
[2020-11-27 15:28] VITALS: PULSE 75; RESP 11; O2SAT 99
[2020-11-27] MEDS: Aspirin 81 MG TAB.CHEW 324 MG PO (15:51)
--- NOTE | 2020-11-27 16:45 | EDS_ITS ---
HPI History of Present Illness Chief Complaint: Chest Pain Informant: patient Onset/Context/Timing Onset: Hours Activity at onset: activity on onset and light activity Timing: Intermittent Quality: Positive for Pressure Location: Substernal Current Severity: Gone Maximum Severity: Moderate Worsened By: - (Not applicable) Relieved By: Rest Associated Symptoms: Positive for Diaphoresis and Dyspnea; Negative for Nausea, Vomiting, Cough, Fever, Lightheadedness, Acid Reflux and Palpitations Narrative Narrative: Patient is a 40-year-old woman with history of anxiety, discectomy with foot drop on the left who presents with midsternal chest discomfort after going up a flight of stairs. This was associated with dyspnea and diaphoresis. She has no known history of coronary disease. She does smoke. She also has history of iron deficiency anemia. She denies black or maroon-colored stool. She presently has no pain. She denies any infectious-like symptoms. She denies hematemesis, melena medic easier. She denies history of VTE. She denies leg pain, swelling discoloration. She does report fatigue for the past 1 to 2 months. She has not had a thyroid test done recently. She feels as if she has no energy. She denies weight gain or weight loss. Prior Similar Symptoms: No Recent Illness/Hospitalization: No CVD Risk Factors: Positive for Family History 1' </=55 and Smoking; Negative for Hypertension, Diabetes and Hypercholesterolemia PE Risk Factors: Negative for Recent Travel/Surgery, Recent Immobilization, Prior DVT or PE, Cancer and OCP + Smoking + >/=35 TAD Risk Factors: Negative for Marfan's Syndrome, Hypertension and Family History PFSH COUNT INCLUDES [facility] Medical History Anxiety and depression Smoker Substance abuse Home Medications gabapentin 600 mg PO QHS 11/18/17 [History Last Taken 08/10/20] norgestimate-ethinyl estradiol [[place]-Linyah] 1 tab PO QHS 08/04/20 [History Last Taken 08/10/20] albuterol sulfate 1 - 2 puff INHALATION Q6H PRN PRN 11/27/20 [History Last Taken Unknown] aripiprazole 10 mg PO DAILY 11/27/20 [History Last Taken Unknown] Allergy/AdvReac Type Severity Reaction Status Date / Time Penicillins Allergy Intermediate Rash Verified 11/27/20 13:59 acetaminophen [From Vicodin] AdvReac Intermediate Nausea Verified 11/27/20 13:59 hydrocodone bitartrate AdvReac Intermediate Nausea Verified 11/27/20 13:59 [From Vicodin] Family History Mother Hypertension Uncle Hypertension Sister Hypertension Grandfather Hypertension Prostate cancer Unknown Myocardial infarction Surgical History bilateral uterine surgery delivery delivered dissection of L-4 and L-5 H/O dilation and curettage History of cholecystectomy History of foot surgery History of lumbar fusion History of tonsillectomy Hx of appendectomy S/P tubal ligation tendon transfer Social History (Updated 11/27/20 @ 16:[address] Madhav Conley MD) household members: none Smoking Status: Current some day smoker tobacco type: cigarettes and e- cigarettes alcohol intake: current details: social substance use type: does not use caffeine: Yes what type of physical activity do you participate in: walking frequency: daily seatbelt use: always do you feel safe at home: Yes additional social history: engaged ROS ROS ED Constitutional Constitutional ED: Denies chills, fever(s), subjective or sweats Eyes Eyes: Reports none ENT ENT ED: Denies ear pain, rhinorrhea or sore throat Cardiovascular Cardiovascular: Reports as per HPI; Denies orthopnea or paroxysmal nocturnal dyspnea Respiratory/Chest Respiratory/Chest: Reports dyspnea; Denies cough, dyspnea on exertion, orthopnea, paroxysmal nocturnal dyspnea or sputum Gastrointestinal Gastrointestinal: Denies abdominal pain, diarrhea, melena, nausea or vomiting Genitourinary Genitourinary ED: Denies dysuria, hematuria or urinary frequency Musculoskeletal Musculoskeletal: Denies arthralgias, myalgias or neck pain Integumentary Denies rash Neurologic Neurologic: Reports weakness; Denies headache(s) or paresthesias Psychiatric Psychiatric: Reports depression Endocrine Endocrinology: Denies polydipsia, polyphagia or polyuria EXAM Physical Exam Const Vital Signs: 11/27/20 14:00 11/27/20 15:28 11/27/20 18:20 Temperature 97.9 F Temperature Source Temporal Pulse Rate 87 75 85 Respiratory Rate 16 11 L 17 Respiratory Effort Normal Blood Pressure 136/79 H Blood Pressure Mean 98 Pulse Ox 98 99 100 Oxygen Delivery Method Room Air Room Air Room Air Positive well nourished and well developed General Appearance ED: well developed and NAD HEENT Reports moist mucous membranes normocephalic and atraumatic Eyes PERRL and EOMs intact bilaterally General Eye ED: Negative for pale conjunctiva or scleral icterus Neck no lymphadenopathy, supple and no JVD Resp normal respiratory effort Effort and Inspection: respiratory distress Cardio regular rate, regular rhythm, S1 normal heart sound and S2 normal heart sound GI normal to inspection, nondistended, normoactive bowel sounds, soft to palpation and non-tender Back/Spine no CVA tenderness and no thoracic nor lumbar tenderness Cervical Spine: Negative for cervical spine tenderness Extremity normal to inspection Extremity Narrative: There is no asymmetry, swelling, discoloration, leg vein distention, palpable cords or tenderness along the distribution of the deep venous system. General Extremety ED: Negative for edema or tenderness General Extremity: Negative for edema Neuro oriented x3, CN's II-XII intact bilaterally and no sensory deficits noted Neuro Narrative: Diminished ankle reflex on the left. There may be a delayed relaxation phase ankle reflex on the right. Sensorium / Orientation: awake and alert Psych mental status grossly normal Skin no rashes or lesions noted and no wounds Heart Score History: Moderately Suspicious ECG: Normal Age: </= 45 years Risk Factors: 1 or 2 Risk Factors Troponin: </= Normal Limit Score: 2 MDM MDM MDM Narrative Medical decision making narrative: She presents with chest pain. This may represent cardiac versus noncardiac etiology. Patient's heart score is a 2. Will repeat a 2-hour troponin since her symptoms only lasted 15 minutes and occurred less than 2 hours prior to first troponin being drawn. TSH was obtained because of her generalized fatigue and lack of energy. She is not anemic. Her renal function is normal. Lab Data Attestation: I reviewed the patient's lab results. Lab results narrative: Patient's initial troponin was less than 8. Delta is less than 7 and total is less than 8. Therefore negative predictive value is 100% for coronary disease. Therefore, patient be discharged home to follow-up with her primary care physician. Labs: Laboratory Results - last 24 hr 11/27/20 11/27/20 11/27/20 14:20 14:20 17:22 WBC 7.8 RBC 3.87 L Hgb 12.5 Hct 36.9 L MCV 95.3 MCH 32.3 H MCHC 33.9 RDW Std Deviation 42.1 RDW Coeff of Darrius 12.1 Plt Count 295 MPV 8.8 Immature Gran % (Auto) 0.300 Neut % (Auto) 49.6 Lymph % (Auto) 44.1 H Monroe % (Auto) 5.0 Eos % (Auto) 0.6 Baso % (Auto) 0.4 Absolute Neuts (auto) 3.8 Absolute Lymphs (auto) 3.42 Nucleated RBC % 0 Sodium 141 Potassium 3.8 Chloride 106 Carbon Dioxide 25.0 Anion Gap 10 BUN 15 Creatinine 0.86 Estim Creat Clear Calc 86.25 Est GFR (MDRD) Af Amer 95 Est GFR (MDRD) Non-Af 79 BUN/Creatinine Ratio 17.5 Glucose 94 Calcium 8.4 L Troponin I High Sens 4 4 TSH 1.48 Radiography Chest X-Ray - ED: 1 View, Read by ED Physician (X-ray was interpreted by me at 1521), Normal, Heart, Lungs, Mediastinum and Bony Structures Diagnostic Testing: Radiology Impression Chest X-Ray 11/27/20 15:14 IMPRESSION: Normal x-ray examination of the chest. Electronically Signed: Chico Cota MD at 15:31 EDT , Service support , Discharge Plan Triage Chief Complaint: Chest Pain ED Provider: Madhav Conley Dx/Rx/DC Orders Clinical Impression: Chest pressure Instructions: ED Chest Pain, Uncertain Cause Prescriptions: No Action gabapentin 100 MG capsule 600 mg PO QHS RF: 0 norgestimate-ethinyl estradiol [[place]-Linyah] 0.25-35 mg-mcg Tablet 1 tab PO QHS RF: 0 albuterol sulfate 90 mcg/actuation HFA aerosol inhaler 1 - 2 puff INHALATION Q6H PRN PRN (Reason: Dyspnea) RF: 0 aripiprazole 5 mg tablet 10 mg PO DAILY RF: 0 Primary Care Provider: Crystal Batista Referrals: Crystal Batista MD [Primary Care Provider] - 3-5 Days Disposition Disposition: Home, Self Care
[2020-11-27 17:58] LABS: Thyroid Stim Hormone (TSH) 1.48 uIU/mL (0.358-3.74); Troponin-I HS 4 pg/mL (3.0-54.0)
[2020-11-27 18:20] VITALS: PULSE 85; RESP 17; O2SAT 100
[2020-11-27 19:27] VITALS: PULSE 83; RESP 17; O2SAT 100
== END 2020-11-27 19:50 | disposition home or self-care (01) ==
PROVIDERS: Emergency Provider Emergency Medicine; PCP Internal Medicine
DX: R07.89 Other chest pain (principal); R53.83 Other fatigue; F17.210 Nicotine dependence, cigarettes, uncomplicated; F17.290 Nicotine dependence, other tobacco product, uncomplicated
CPT/HCPCS: 71045; 80048; 84443; 84484; 85025; 93005; 99284; A4216

== ENCOUNTER 2021-02-25 12:25 | Emergency (ER) | payer MEDICARE, MEDICAID, SELFPAY ==
[2021-02-25 12:26] VITALS: BP 142/98; PULSE 112; RESP 20; TEMP 36.8; O2SAT 99; BMI 31.3
[2021-02-25] MEDS: dexAMETHasone 10 MG/ML Vial PO.IVFORM (13:28)
--- NOTE | 2021-02-25 13:28 | RAD_ITS ---
INDICATION: cough EXAMINATION/TECHNIQUE: X-RAY - XR Chest 1 View COMPARISON: 11/27/2020. FINDINGS: LINES/DEVICES: None. LUNGS: No consolidation, edema or effusion. No pneumothorax. MEDIASTINUM AND CARDIOVASCULAR STRUCTURES: Cardiac silhouette not enlarged. Central airways and mediastinal contour are unremarkable. BONES AND SOFT TISSUES: Unremarkable. RAD/Chest 1 View (Portable) IMPRESSION: No radiographic evidence of acute cardiopulmonary disease. Electronically Signed: Gideon Wilkerson MD at 14:28 EST Tel , Service support ,
--- NOTE | 2021-02-25 13:28 | EX.ED.DYSGE1 ---
HPI History of Present Illness Chief Complaint: Shortness of Breath Informant: patient Narrative Narrative: Patient presenting to the emergency department out of concern for COVID-19. 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 Patient states that she has fatigue and fevers and cough and rhinorrhea. She is not vaccinated. She notes an extremely sore throat with some spots on her throat. PFSH PFSH Medical History Anxiety and depression Smoker Substance abuse Home Medications gabapentin 600 mg PO QHS 11/18/17 [History Last Taken 08/10/20] norgestimate-ethinyl estradiol [[place]] 1 tab PO QHS 08/04/20 [History Last Taken 08/10/20] albuterol sulfate 1 - 2 puff INHALATION Q6H PRN PRN 11/27/20 [History Last Taken Unknown] aripiprazole 10 mg PO DAILY 11/27/20 [History Last Taken Unknown] Allergy/AdvReac Type Severity Reaction Status Date / Time Penicillins Allergy Intermediate Rash Verified 02/25/21 12:28 acetaminophen [From Vicodin] AdvReac Intermediate Nausea Verified 02/25/21 12:28 hydrocodone bitartrate AdvReac Intermediate Nausea Verified 02/25/21 12:28 [From Vicodin] Family History Mother Hypertension Uncle Hypertension Sister Hypertension Grandfather Hypertension Prostate cancer Unknown Myocardial infarction Surgical History bilateral uterine surgery delivery delivered dissection of L-4 and L-5 H/O dilation and curettage History of cholecystectomy History of foot surgery History of lumbar fusion History of tonsillectomy Hx of appendectomy S/P tubal ligation tendon transfer Social History household members: none Smoking Status: Current some day smoker tobacco type: cigarettes alcohol intake: current details: social substance use type: does not use caffeine: Yes what type of physical activity do you participate in: walking frequency: daily seatbelt use: always do you feel safe at home: Yes additional social history: engaged ROS ROS ED Constitutional Constitutional ED: Reports chills; Denies weight loss Eyes Eyes: Denies change in vision or diplopia ENT ENT ED: Reports rhinorrhea and sore throat; Denies ear pain Cardiovascular Cardiovascular: Denies chest pain, orthopnea, palpitations or racing heartbeat Respiratory/Chest Respiratory/Chest: Reports cough and dyspnea; Denies orthopnea Gastrointestinal Gastrointestinal: Denies abdominal pain, diarrhea, nausea or vomiting Genitourinary Genitourinary ED: Denies dysuria, hematuria or urinary frequency Musculoskeletal Musculoskeletal: Reports myalgias; Denies arthralgias Integumentary Denies abscess or rash Neurologic Neurologic: Reports headache(s); Denies weakness Psychiatric Psychiatric: Denies anxiety, depression, suicidal ideation or suicidal thoughts Endocrine Endocrinology: Denies polydipsia, polyphagia or polyuria Allergic/Immunologic Allergic/Immunologic ED: Denies mouth swelling, tongue swelling or urticaria EXAM Physical Exam Const Vital Signs: 02/25/21 12:26 02/25/21 13:24 Temperature 98.2 F Temperature Source Temporal Pulse Rate 112 H Respiratory Rate 20 H Respiratory Effort Normal Blood Pressure 142/98 H Blood Pressure Mean 112 Pulse Ox 99 Oxygen Delivery Method Room Air Room Air Positive well nourished and well developed General Appearance ED: well developed HEENT Reports normocephalic, head/scalp atraumatic, TM's clear and moist mucous membranes HEENT Narrative: Oral pharyngeal erythema with palatal petechiae noted no tonsillar swelling or exudates noted Negative for trauma Tympanic Membrane ED: Yes TM's clear Eyes PERRL and EOMs intact bilaterally Neck no lymphadenopathy, supple and no JVD Resp normal respiratory effort and clear to auscultation bilaterally Cardio regular rate and no murmurs Rate: tachycardic GI normal to inspection, nondistended, normoactive bowel sounds and non-tender Palpation: soft Back/Spine no CVA tenderness and normal ROM Cervical Spine: Negative for cervical spine tenderness Extremity normal to inspection General Extremety ED: Negative for edema General Extremity: Negative for edema Neuro oriented x3 and CN's II-XII intact bilaterally Sensorium / Orientation: alert Motor Exam: strength 5/5 throughout Psych mental status grossly normal Mood & Affect: Negative for depressed or tearful Skin no rashes or lesions noted and no wounds MDM MDM MDM Narrative Medical decision making narrative: Patient is Covid positive. She is leukopenic at 3.4. Platelet count of 221. My interpretation of the chest x-ray is no acute process. Patient was given a dose of Decadron to help with her throat. This should also start to help with her Covid. I can write for her to have some Decadron at home. She is not requiring any supplemental oxygen. Lab Data Attestation: I reviewed the patient's lab results. Labs: Laboratory Results - last 24 hr 02/25/21 13:20 WBC 3.4 L RBC 4.31 Hgb 13.6 Hct 40.2 MCV 93.3 MCH 31.6 MCHC 33.8 RDW Std Deviation 41.1 RDW Coeff of Darrius 11.9 Plt Count 221 MPV 9.1 Immature Gran % (Auto) 0.300 Neut % (Auto) 46.6 L Lymph % (Auto) 44.9 H [place] % (Auto) 7.9 Eos % (Auto) 0.0 Baso % (Auto) 0.3 Absolute Neuts (auto) 1.6 L Absolute Lymphs (auto) 1.53 Nucleated RBC % 0 Discharge Plan Triage Chief Complaint: Shortness of Breath ED Provider: Evelio Lowery Dx/Rx/DC Orders Prescriptions: No Action gabapentin 100 MG capsule 600 mg PO QHS RF: 0 norgestimate-ethinyl estradiol [[place]] 0.25-35 mg-mcg Tablet 1 tab PO QHS RF: 0 albuterol sulfate 90 mcg/actuation HFA aerosol inhaler 1 - 2 puff INHALATION Q6H PRN PRN (Reason: Dyspnea) RF: 0 aripiprazole 5 mg tablet 10 mg PO DAILY RF: 0 Primary Care Provider: Crystal Batista
[2021-02-25 13:42] LABS: Absolute Lymphocyte Count 1.53 X10^3/uL (0.83-4.51); Absolute Neutrophil Count 1.6 X10^3/uL (2.0-7.7); Basophil# 0.01 X10^3/uL; Basophil% 0.3 % (0-1); Hematocrit 40.2 % (37-47); Hemoglobin 13.6 g/dL (12.0-15.0); Lymphocyte # 1.53 X10^3/ul (0.83-4.51); Lymphocyte % 44.9 % (19-41); Mean Corp Hgb Conc 33.8 g/dL (32-36); Mean Corpuscular Hgb 31.6 pg (27.0-32.0); Mean Corpuscular Volume 93.3 fL (81-99); Mean Platelet Vol. 9.1 fl (6.2-12.0); Monocyte# 0.27 X10^3/uL; Monocyte% 7.9 % (0-10); NRBC Flagged by Analyzer 0 % (0-5); Neutrophil # 1.59 X10^3/uL (2.7-7.7); Neutrophil % 46.6 % (47-70); Platelet Count 221 K/mm3 (150-450); RBC Distribution Width CV 11.9 % (11.6-14.6); RBC Distribution Width SD 41.1 fl (35.1-43.9); Red Blood Count 4.31 M/mm3 (4.2-5.4); White Blood Count 3.4 K/mm3 (4.4-11.0)
[2021-02-25 13:56] LABS: ALB/GLOB Ratio 0.9 RATIO (0.9-2.4); AST(SGOT) 31 U/L (15-37); Alanine Aminotransfer ALT/SGPT 51 U/L (13-56); Albumin, Serum 3.3 g/dL (3.2-5.0); Alkaline Phosphatase 45 U/L (45-117); Anion Gap 4 (5-15); BUN 11 mg/dL (7-18); BUN/Creat Ratio 14.4 RATIO (10-20); Calcium,Total 8.7 mg/dL (8.5-10.1); Chloride 110 mmol/L (98-107); Creatinine, Serum 0.77 mg/dL (0.55-1.02); EST Glomerular Filtration Rate 89 mL/min (>60); Est Glom Filt Rate - Afr Amer 108 mL/min (>60); Estimated Creatinine Clearance 96.33 ml/min; Globulin 3.8 g/dL (2.2-4.2); Glucose 79 mg/dL (74-106); Potassium 4.1 mmol/L (3.5-5.1); Protein, Total 7.1 g/dL (6.4-8.2); Sodium Level 139 mmol/L (136-145)
[2021-02-25 14:41] VITALS: RESP 15; O2SAT 95
== END 2021-02-25 14:42 | disposition home or self-care (01) ==
PROVIDERS: Emergency Provider Emergency Medicine; PCP Internal Medicine
DX: U07.1 COVID-19 (principal); F32.A Depression, unspecified; F41.9 Anxiety disorder, unspecified; F17.210 Nicotine dependence, cigarettes, uncomplicated; Z79.899 Other long term (current) drug therapy
CPT/HCPCS: 71045; 80053; 85025; 87426; 99283

== ENCOUNTER 2021-03-04 09:14 | Outpatient (CLI) | payer MEDICARE, MEDICAID, SELFPAY ==
[2021-03-04 09:25] VITALS: BP 153/100; PULSE 96; RESP 16; TEMP 36.6; O2SAT 100; BMI 31.3
[2021-03-04] MEDS: 0.9% Saline Lock 10 ML Syringe IV (09:26)
[2021-03-04 09:49] VITALS: BP 140/93; PULSE 87; RESP 16; TEMP 36.8; O2SAT 99
[2021-03-04 10:49] VITALS: BP 126/85; PULSE 74; RESP 16; TEMP 36.5; O2SAT 100
== END 2021-03-04 23:59 | disposition home or self-care (01) ==
LOC: MS3OUT 09:15 → MS3 09:16
PROVIDERS: PCP Internal Medicine; Visit Provider Emergency Medicine
DX: U07.1 COVID-19 (principal)
CPT/HCPCS: J7050; M0243; A4216; Q0244